=== PATIENT | female | born 1990 | race Caucasian/White ===

== ENCOUNTER 2018-11-05 20:30 | Emergency (ER) | payer OTHER ==
[~2018-11-05] VITALS: Ht 157.5 cm; Wt 86.2 kg
[2018-11-05 20:41] VITALS: BP 117/79; Ht 157.5 cm; Wt 86.2 kg
== END 2018-11-05 22:39 | disposition left against medical advice (07) ==
LOC: ED 20:30
DX: Z53.21 Procedure and treatment not carried out due to patient leaving prior to being seen by health care provider (principal)